=== PATIENT | male | born 1945 | race Caucasian/White ===

== ENCOUNTER 2021-07-03 07:28 | Day surgery (SDC) | payer OTHER, MEDICARE ==
[2021-07-01 15:37] VITALS: BMI 34.4
[2021-07-03] MEDS ORDERED: LIDOCAINE HCL/PF 2% SDV 5ML VIAL ONE (07:37)
[2021-07-03] MEDS ORDERED: PROPOFOL 20 ML ONE ×4 (07:37)
[2021-07-03 09:21] VITALS: BP 140/82; PULSE 76; TEMP 97.8
== END 2021-07-03 09:40 | disposition home or self-care (01) ==
LOC: FASU-ENDO 07:28
PROVIDERS: ATTEND Internal Medicine Gastroenterology
PROC: 0DBL8ZX Excision of Transverse Colon, Via Natural or Artificial Opening Endoscopic, Diagnostic (ICD-10-PCS; 2021-07-03)
PROC: 0DBL8ZX Excision of Transverse Colon, Via Natural or Artificial Opening Endoscopic, Diagnostic (ICD-10-PCS; principal; 2021-07-03 08:14)
DX: Z86.010 Personal history of colon polyps (principal); D12.2 Benign neoplasm of ascending colon; D12.3 Benign neoplasm of transverse colon; K57.30 Diverticulosis of large intestine without perforation or abscess without bleeding
CPT/HCPCS: 88305-TC

== ENCOUNTER 2021-07-31 07:07 | Day surgery (SDC) | payer OTHER, MEDICARE ==
[2021-07-29 11:37] VITALS: BMI 32.8
[2021-07-31] MEDS: PHENYLEPHRINE 2.5% OPHTH SOLN 15 ML BOTTLE ONE ×3 (07:50→08:00)
[2021-07-31] MEDS: CIPROFLOXACIN 0.3% EYE DROPS 5 ML BOTTLE ONE ×3 (07:50→08:00)
[2021-07-31] MEDS: TROPICAMIDE 1% OPHTH SOLN 15 ML BOTTLE ONE ×3 (07:50→08:00)
[2021-07-31] MEDS: CYCLOPENTOLATE 2% OPHTH SOLN 2 ML BOTTLE ONE ×3 (07:50→08:00)
[2021-07-31] MEDS ORDERED: TETRACAINE 0.5% OPHTH SOLN 2 ML BOTTLE ONE (08:44)
[2021-07-31] MEDS ORDERED: BSS (NA/CA/MG/K) BALANCED SALT SOLUTION OPHTH SOLN 15 ML BOTTLE ONE (08:44)
[2021-07-31] MEDS ORDERED: LIDOCAINE 1% P/F 10 MG/ML VIAL ONE (08:44)
[2021-07-31] MEDS ORDERED: CARBACHOL 0.01% INTRA-OCULAR 1.5 ML VIAL ONE (08:45)
[2021-07-31] MEDS ORDERED: NEO/POLYMYX B SULF/DEXAMETH OPHTHALMIC 5ML BOTTLE ONE (08:45)
[2021-07-31] MEDS ORDERED: MIDAZOLAM HCL 2 MG/2 ML SINGLE DOSE VIAL ONE (08:58)
[2021-07-31] MEDS ORDERED: ONDANSETRON 4 MG/2 ML VIAL ONE (09:06)
[2021-07-31 09:27] VITALS: TEMP 97.2
[2021-07-31 09:45] VITALS: BP 139/84; PULSE 70
== END 2021-07-31 10:00 | disposition home or self-care (01) ==
LOC: FASU 07:07
PROVIDERS: ATTEND Ophthalmology
PROC: 08RJ3JZ Replacement of Right Lens with Synthetic Substitute, Percutaneous Approach (ICD-10-PCS; principal; 2021-07-31 09:00)
DX: H26.8 Other specified cataract (principal)

== ENCOUNTER 2021-08-28 08:21 | Day surgery (SDC) | payer OTHER, MEDICARE ==
[2021-08-20 12:06] VITALS: BMI 33.6
[2021-08-28] MEDS: TROPICAMIDE 1% OPHTH SOLN 15 ML BOTTLE ONE ×3 (08:45→08:55)
[2021-08-28] MEDS: CIPROFLOXACIN 0.3% EYE DROPS 5 ML BOTTLE ONE ×3 (08:45→08:55)
[2021-08-28] MEDS: CYCLOPENTOLATE 2% OPHTH SOLN 2 ML BOTTLE ONE ×3 (08:45→08:55)
[2021-08-28] MEDS: PHENYLEPHRINE 2.5% OPHTH SOLN 15 ML BOTTLE ONE ×3 (08:45→08:55)
[2021-08-28] MEDS ORDERED: MIDAZOLAM HCL 2 MG/2 ML SINGLE DOSE VIAL ONE (10:29)
[2021-08-28 11:20] VITALS: BP 127/71; TEMP 97.7
[2021-08-28 11:53] VITALS: PULSE 56
== END 2021-08-28 11:55 | disposition home or self-care (01) ==
LOC: FASU 08:21
PROVIDERS: ATTEND Ophthalmology
PROC: 08RK3JZ Replacement of Left Lens with Synthetic Substitute, Percutaneous Approach (ICD-10-PCS; principal; 2021-08-28 10:56)
DX: H26.8 Other specified cataract (principal)
CPT/HCPCS: 66984; V2632